=== PATIENT | female | born 1950 | race Caucasian/White ===

== ENCOUNTER → 2016-11-28 | Outpatient (CLI) | payer MEDICARE, OTHER | END | disposition home or self-care (01) | LOC: CFH 09:48 → EDSTATUS 10:15 | PROVIDERS: ATTEND Internal Medicine | DX: Z13.820 Encounter for screening for osteoporosis (principal); M85.88 Other specified disorders of bone density and structure, other site; E04.2 Nontoxic multinodular goiter; N95.9 Unspecified menopausal and perimenopausal disorder; Z98.1 Arthrodesis status | CPT/HCPCS: 72072; 76536; 77080 ==

== ENCOUNTER → 2020-05-31 | Outpatient (CLI) | payer MEDICARE, OTHER ==
[~2020-05-31] MED LIST: OMNIPAQUE 350 MG/ML, 100ML BOTTLE ONE
== END | disposition home or self-care (01) ==
LOC: CFH 10:53
PROVIDERS: ATTEND Physician Assistant
DX: K57.30 Diverticulosis of large intestine without perforation or abscess without bleeding (principal); K76.0 Fatty (change of) liver, not elsewhere classified; Z90.710 Acquired absence of both cervix and uterus
CPT/HCPCS: 74177; Q9967

== ENCOUNTER 2020-06-13 11:37 | Emergency (ER) | payer MEDICARE, OTHER ==
[~2020-06-13] VITALS: Ht 165.1 cm; Wt 76.3 kg
[2020-06-13] MEDS ORDERED: DICYCLOMINE 10 MG/ML, 2ML IM ONE (12:30)
[2020-06-13] MEDS ORDERED: SODIUM CHLORIDE FLUSH 10ML SYR IVF ONE (12:30)
[2020-06-13] MEDS ORDERED: SODIUM CHLORIDE 0.9% 1,000ML IVBOLUS ONE (12:30)
[2020-06-13] MEDS ORDERED: ONDANSETRON 2MG/ML, 2ML IVPush ONE (12:30)
[2020-06-13] MEDS ORDERED: FAMOTIDINE 20 MG/2 ML IVPush ONE (12:30)
[2020-06-13 12:36] LABS: BASOPHILS % (AUTO) 1 % (0-1); EOSINOPHILS % (AUTO) 2 % (1-7); LYMPHOCYTES % (AUTO) 21 % (22-44); MEAN CORPUSCULAR HEMOGLOBIN 27.6 pg (27.0-34.8); MEAN CORPUSCULAR HGB CONC 32.7 g/dL (32.4-35.8); MEAN PLATELET VOLUME 10.7 fL (7.4-10.4); MONOCYTES % (AUTO) 6 % (2-9); NEUTROPHILS % (AUTO) 71 % (42-75); PLATELET COUNT 220 x10^3/uL (130-400); RED BLOOD COUNT 5.66 x10^6/uL (3.82-5.3); RED CELL DISTRIBUTION WIDTH 14.7 % (9.6-15.2)
[2020-06-13] MEDS ORDERED: DICYCLOMINE 10 MG/ML, 2ML ONE (12:40)
[2020-06-13] MEDS ORDERED: FAMOTIDINE 20 MG/2 ML ONE (12:40)
[2020-06-13 12:43] LABS: MD NO
[2020-06-13 12:49] LABS: ALANINE AMINOTRANSFERASE 20 U/L (12-78); ALBUMIN 3.7 g/dL (3.4-5.0); ANION GAP 5 mmol/L (5-15); CALCIUM 9.5 mg/dL (8.5-10.1); CHLORIDE 108 mmol/L (98-107); CREATININE 0.77 mg/dL (0.55-1.02)
[2020-06-13 12:52] LABS: ALKALINE PHOSPHATASE 55 U/L (45-117); BILIRUBIN,TOTAL 0.5 mg/dL (0.2-1.0); TOTAL PROTEIN 7.5 g/dL (6.4-8.2)
--- NOTE | 2020-06-13 13:11 | NUR ---
Pt presents to the ER for N/V and abd cramping that started "Eastthursday morning." Pt states even the smell of food makes her nauseous and that she is not eating or able to "keep anything down." Pt states she was diagnosed with gastroenteritis and given Cipro and Flagyl. She was unable to finish the Cipro as it was too hard on her stomach. She felt better for 2 days after finishing the course of Flagyl. Pt connected to all monitors. NADN. Educated about need for urine and stool sample. Will continue to monitor.
--- NOTE | 2020-06-13 14:00 | NUR ---
Late entry note: Pt was ambulatory to bathroom and called this RN to bathroom to look at saumya blood in toilet. Scant saumya blood seen in toilet. Pt denied having hemorrhoids. BLAS Quiñones made aware.
[2020-06-13 14:35] LABS: MICROSCOPIC NOT IND
[2020-06-13 15:19] VITALS: BP 153/78
== END 2020-06-13 15:28 | disposition home or self-care (01) ==
LOC: ED 12:26
DX: R10.84 Generalized abdominal pain (principal); R11.2 Nausea with vomiting, unspecified; R19.7 Diarrhea, unspecified; R94.31 Abnormal electrocardiogram [ECG] [EKG]
CPT/HCPCS: 36415; 80053; 81003; 83690; 85025; 93005; 96361; 96372; 96374; 99284; J0500; J7030